=== PATIENT | female | born 1970 | race Caucasian/White ===

== ENCOUNTER 2021-10-08 05:55 | Day surgery (SDC) | payer MEDICAID ==
[~2021-10-08] VITALS: Ht 165.1 cm; Wt 124.0 kg
[~2021-10-08 05:55] MED LIST: ACET325T9 PO; MULT-496 PO
[2021-10-08] MEDS ORDERED: fentaNYL PF VIAL 100 MCG/2 ML VIAL IVP PRN ×2 (06:00)
[2021-10-08] MEDS ORDERED: IV RINGERS,LACTATED 1000ML 1,000 ML IV SCH (06:00)
[2021-10-08] MEDS ORDERED: HYDROmorphone 2 MG/ML INJ. IVP PRN (06:00)
[2021-10-08] MEDS ORDERED: ceFAZolin SODIUM 3 GM in IV DEXTROSE 5% 100ML 100 ML IV PRN (06:00)
[2021-10-08] MEDS ORDERED: MORPHINE SULFATE 2 MG/ML INJ. IVP PRN (06:00)
[2021-10-08] MEDS ORDERED: PROCHLORPERAZINE 10 MG/2 ML VIAL. IVP PRN (06:00)
[2021-10-08 06:13] VITALS: BP 121/62
[2021-10-08] MEDS ORDERED: BUPIVACAINE MPF 0.5% 30 ML VIAL. ONE (07:02)
[2021-10-08] MEDS ORDERED: LIDOCAINE 1% Multi-Dose 20 ML VIAL. ONE (07:02)
[2021-10-08] MEDS ORDERED: DEXAMETHASONE SOD PHOS 4 MG/ML VIAL ONE (07:06)
[2021-10-08] MEDS ORDERED: PROPOFOL 10 MG/ML (20ML) VIAL. IV ONE (07:06)
[2021-10-08] MEDS ORDERED: KETOROLAC 30 MG/ML VIAL. ONE (07:06)
[2021-10-08] MEDS ORDERED: ONDANSETRON PF 4 MG/2 ML VIAL. ONE (07:07)
[2021-10-08] MEDS ORDERED: LIDOCAINE 1% PF 5 ML VIAL. ONE (07:07)
[2021-10-08] MEDS ORDERED: fentaNYL PF VIAL 100 MCG/2 ML VIAL ONE (07:08)
[2021-10-08] MEDS ORDERED: MIDAZOLAM HCL/PF 2 MG/2 ML VIAL. ONE (07:08)
[2021-10-08] MEDS ORDERED: FAMOTIDINE 20 MG/2 ML VIAL ONE (07:22)
[2021-10-08] MEDS ORDERED: HYDR-2761 PO (07:35)
--- NOTE | 2021-10-08 07:35 | DISCH ---
DISCHARGE INSTRUCTIONS Condition on Discharge Condition on Discharge: Stable Activity After Discharge Activity Instructions for Disc: Other ROM activity Bathing Instructions: Shower-keep dressing dry Weight Bearing Status after Di: As tolerated, Non weight bearing Diet after Discharge Diet after Discharge: Regular Wound Incision Care Wound/Incision Care: Ice to area for comfort, Keep wound/cast CDI, Change dressing Other wound/incision instructi: change dressing in 2-3 days Contacting the [facility]Heber after DC Call your doctor for: Concerns you may have Follow-Up Follow up with: Edvin in 2wks BORIS ENCINAS II, MD Oct 08, 2021 07:35
--- NOTE | 2021-10-08 07:40 | PDOC4 ---
Operative Note Operative Note Date of procedure: 10/08/2021 Surgeon: Leobardo Encinas [employer] Worker: Ismael Pineda Preoperative diagnosis: Left carpal tunnel syndrome Postoperative diagnosis: Same Procedure performed: Open left carpal tunnel release Anesthesia: GETA Findings: Normal-appearing median nerve Blood loss: 2 mL Complications: none Tourniquet time: 15 minutes Reason for procedure: Patient is a pleasant 50-year-old female who tried and failed conservative therapies including anti-inflammatories and bracing for her electromyographic Claude proven carpal tunnel syndrome. Clinical examination was consistent with her preoperative diagnosis and because she had failed conservative therapies we had a discussion of the risk benefits and alternatives to the above surgery and she wished to proceed. Description of procedure: She was greeted in the preoperative area by myself or the correct extremity was verified and marked. She was brought back to the operating room and antibiotics started as she was brought back. Once in the operating room she was transferred gently supine to the operating table and secured to bed with all pressure points padded, we attached the arm board to the operating room table. She had successful induction of her anesthetic. We then proceeded to prep and drape left upper extremity our usual sterile fashion after applying a nonsterile tourniquet. After this, we conducted our standard preoperative timeout. I then made an incision in a palmar crease beginning at her distal wrist crease and proceeding into her palm. I dissected subcutaneous tissue with small curved hemostat, using bipolar cautery for any bleeders that were encountered. I placed my self-retaining retractor and incised the palmar fascia in line with the skin incision. Identified the transverse carpal ligament and released this sharply with a scalpel. I then placed a Ragnell retractor at the distal aspect of the incision, spread above and below a small remaining portion of the ligament and released it with tenotomy's. I then repeated this maneuver in an ulnar directed fashion at the proximal aspect of the incision to release the distal antebrachial fascia. After this, I palpated along the course of the nerve with the tip of the tenotomies to ensure that accomplished a complete release. The wound was then irrigated out with sterile fluid. The skin was closed with 3-0 nylon in a mattress fashion. Prior to wound closure all counts correct x2. Tourniquet had been let down and hemostasis ensured. At the conclusion, a soft bulky sterile dressing was applied followed by an Richard wrap. Postoperative instructions were discussed with the patient and given in written form. She will be discharged home today. I will see her back in 2 weeks, sooner should a problem arise LEOBARDO ENCINAS II, MD Oct 08, 2021 07:40
[2021-10-08] MEDS ORDERED: HYDROcodone/APAP 5/325MG 1 TAB TABLET PO ONE (08:15)
[2021-10-08 08:55] VITALS: BP 139/64
[2021-10-08] MEDS ORDERED: SEVOFLURANE 16 TO 30 MINUTES. IH ONE (11:09)
== END 2021-10-08 09:03 | disposition home or self-care (01) ==
LOC: SURG 05:55
PROVIDERS: ATTEND Orthopaedic Surgery Sports Medicine
DX: G56.02 Carpal tunnel syndrome, left upper limb (principal); K21.9 Gastro-esophageal reflux disease without esophagitis; Z87.891 Personal history of nicotine dependence; Z79.899 Other long term (current) drug therapy; Z98.890 Other specified postprocedural states; Z88.0 Allergy status to penicillin
CPT/HCPCS: 64721; J1100; J1885; J2250; J2405; J2704; J3010; J3490; A4930; A6223; A6402; A6452

== ENCOUNTER 2021-10-29 06:15 | Day surgery (SDC) | payer MEDICAID ==
[~2021-10-29] VITALS: Ht 165.1 cm; Wt 124.0 kg
[~2021-10-29 06:15] MED LIST changes: +HYDR-2761 PO; +HYDROmorphone 2 MG/ML INJ. IVP PRN; +IV RINGERS,LACTATED 1000ML 1,000 ML IV SCH; +MORPHINE SULFATE 2 MG/ML INJ. IVP PRN; +PROCHLORPERAZINE 10 MG/2 ML VIAL. IVP PRN; +ceFAZolin SODIUM 3 GM in IV DEXTROSE 5% 100ML 100 ML IV PRN; +fentaNYL PF VIAL 100 MCG/2 ML VIAL IVP PRN
[2021-10-29 06:45] VITALS: BP 108/50
[2021-10-29] MEDS ORDERED: LIDOCAINE 1% Multi-Dose 20 ML VIAL. ONE (06:57)
[2021-10-29] MEDS ORDERED: SEVOFLURANE 31 TO 60 MINUTES. IH ONE (06:58)
[2021-10-29] MEDS ORDERED: BUPIVACAINE MPF 0.5% 30 ML VIAL. ONE (06:58)
[2021-10-29] MEDS ORDERED: DEXAMETHASONE SOD PHOS 4 MG/ML VIAL ONE (06:58)
[2021-10-29] MEDS ORDERED: ONDANSETRON PF 4 MG/2 ML VIAL. ONE (06:58)
[2021-10-29] MEDS ORDERED: PROPOFOL 10 MG/ML (20ML) VIAL. IV ONE (06:58)
[2021-10-29] MEDS ORDERED: fentaNYL PF VIAL 100 MCG/2 ML VIAL ONE (06:58)
[2021-10-29] MEDS ORDERED: KETOROLAC 30 MG/ML VIAL. ONE (07:01)
[2021-10-29] MEDS ORDERED: FAMOTIDINE 20 MG/2 ML VIAL IVP ONE (07:15)
[2021-10-29] MEDS ORDERED: HYDR-2761 PO (08:15)
--- NOTE | 2021-10-29 08:15 | DISCH ---
DISCHARGE INSTRUCTIONS Condition on Discharge Condition on Discharge: Stable Activity After Discharge Activity Instructions for Disc: Other ROM activity Bathing Instructions: Shower-keep dressing dry Weight Bearing Status after Di: As tolerated, Non weight bearing Diet after Discharge Diet after Discharge: Regular Wound Incision Care Wound/Incision Care: Ice to area for comfort, Keep wound/cast CDI, Change dressing Contacting the [facility] after DC Call your doctor for: Concerns you may have Follow-Up Follow up with: Edvin in 2wks BORIS ENCINAS II, MD Oct 29, 2021 08:15
--- NOTE | 2021-10-29 08:18 | PDOC4 ---
Operative Note Operative Note Date of procedure: 10/29/2021 Surgeon: Leobardo Encinas [employer] Attendant: Ismael Pineda Preoperative diagnosis: Right carpal tunnel syndrome Postoperative diagnosis: Same Procedure performed: Open right carpal tunnel release Anesthesia: General with an LMA Findings: Normal-appearing median nerve Blood loss: 2 mL Tourniquet time: 12 minutes Complications: None Reason for procedure: Patient is very pleasant individual who has had long- standing symptoms consistent with their electromyographically proven EMG diagnosis of carpal tunnel syndrome. We had tried and failed conservative therapies and had a discussion of the risks, benefits, alternatives to the above surgery and they wished to proceed. She had undergone a successful previous left carpal tunnel release with myself about 3 weeks ago and felt ready to proceed. Description of procedure: Patient was greeted in the preoperative area by myself for the correct extremity was verified and marked. They were then taken back to the operative suite, antibiotics were started as a were brought back. Once in the operating room, patient was transferred gently supine to the operating room table. The hand board attached and was applied to the operating room table. She underwent successful induction of general anesthesia with an LMA. The right upper extremity was then prepped and draped in our usual sterile fashion and we conducted our standard preoperative timeout.after this, I made an incision over the transverse carpal ligament from the distal wrist crease into the palm through a palmar crease. I incised skin with a scalpel and dissected subcutaneous tissue with a curved hemostat. I used bipolar cautery for hemostasis. Identified the palmar fascia and incised this in line with the skin incision and then placed myself retaining retractor. I identified the transverse carpal ligament and incised this with a scalpel. I then placed a Ragnell retractor in the distal portion of the incision, spread above and below small remaining portion of the transverse carpal ligament and transected this with a tenotomy scissors into the palm. After this, I repeated this maneuver and an ulnar directed fashion to release the distal antebrachial fascia at the proximal portion of the incision. I then palpated along the course of the median nerve with the tip of the tenotomies to help ensure that accomplished a complete release. The operative field was then irrigated out with sterile saline. After this, skin was closed with 3-0 nylon in a mattress fashion. A sterile bulky soft dressing was then applied to the patients hand and wrist. The tourniquet was let down, hemostasis had been achieved with electrocautery. Patient tolerated surgery well. No complications. At the conclusion, they were awakened and transferred gently supine to the recovery room cart and taken to the PACU in a stable and extubated condition. Postoperative plan is to discharge patient home. Frequent range of motion at digits and wrist was encouraged. The patient was i nstructed not to lift anything heavy. We will see her back in 2 weeks, sooner should a problem arise. LEOBARDO ENCINSA II, MD Oct 29, 2021 08:18
[2021-10-29] MEDS ORDERED: HYDROcodone/APAP 5/325MG 1 TAB TABLET PO ONE (08:45)
[2021-10-29 08:54] VITALS: BP 119/77
== END 2021-10-29 08:57 | disposition home or self-care (01) ==
LOC: SURG 06:15
PROVIDERS: ATTEND Orthopaedic Surgery Sports Medicine
DX: G56.01 Carpal tunnel syndrome, right upper limb (principal); K21.9 Gastro-esophageal reflux disease without esophagitis; Z87.891 Personal history of nicotine dependence; Z79.899 Other long term (current) drug therapy; Z98.890 Other specified postprocedural states; Z88.0 Allergy status to penicillin
CPT/HCPCS: 64721; J1100; J1885; J2405; J2704; J3010; J3490; A4452; A4930; A6223; A6402; A6452